=== PATIENT | female | born 1995 | race Caucasian/White ===

== ENCOUNTER 2018-08-09 03:18 | Emergency (ER) | payer OTHER ==
--- NOTE | 2018-08-09 03:23 | ER Report ---
History and Physical Time Seen By MD: 03:22 (KELLY CASTRO DO) HPI/ROS CHIEF COMPLAINT: Nausea, vomiting, diarrhea HISTORY OF PRESENT ILLNESS: Patient is a 23-year-old female here with complaints of nausea, vomiting, diarrhea which reportedly had blood present. Mom reports that they have been doing a road trip visiting family in that she developed symptoms starting last night with nausea, crampy abdominal pain, diarrhea. Pat ient examined as fluid depleted and patient has not been tolerating oral intake. Patient's cousin had similar symptoms and was brought into the emergency department. Patient also complained of right knee pain. Patient has a history of developmental delay but is otherwise healthy at baseline. REVIEW OF SYSTEMS: Constitutional: No fever, no chills. Eyes: No discharge. ENT: No sore throat. Cardiovascular: No chest pain, no palpitations. Respiratory: No cough, no shortness of breath. Gastrointestinal: + diffuse abdominal pain, + nausea and vomiting, + bloody diarrhea Genitourinary: No hematuria. Musculoskeletal: No back pain. Skin: No rashes. Neurological: No headache. (KELLY CASTRO DO) Allergies: Coded Allergies: No Known Drug Allergies (Unverified , 08/09/18) Home Meds Active Scripts Ondansetron 4 Mg Odt (ONDANSETRON 4 MG ODT) 4 Mg Tab.rapdis, 4 MG PO ONCE, #20 TAB Prov:KELLY CASTRO DO 08/09/18 Reported Medications [ control ] No Conflict Check, PO DAILY 08/09/18 Polyethylene Glycol 3350 (MIRALAX) 17 Gm Powd.pack, 17 GM PO DAILY, PKT 08/09/18 Constitutional Vital Sign - Last 24 Hours 08/09/18 08/09/18 08/09/18 08/09/18 03:26 03:30 03:48 04:00 Pulse 117 Resp 20 B/P (MAP) 131/92 (105) 135/95 (108) 131/99 (110) Pulse Ox 96 08/09/18 08/09/18 08/09/18 08/09/18 04:05 04:35 04:43 05:35 Temp 98.2 Pulse 130 121 112 106 Resp 13 10 18 8 B/P (MAP) 131/92 Pulse Ox 92 95 O2 Delivery Room Air 1208/09/18 08/09/18 08/09/18 05:45 06:00 06:20 06:25 Pulse 113 104 Resp 15 22 B/P (MAP) 120/81 (94) 120/71 (87) 08/09/18 08/09/18 06:55 07:25 Pulse 113 96 Resp 14 10 (CAROLIN SOARES MD) Physical Exam General Appearance: The patient is alert, has no immediate need for airway protection and no signs of toxicity. NAD Eyes: Pupils equal and round no pallor or injection. ENT, Mouth: Mucous membranes are dry Respiratory: There are no retractions, lungs are clear to auscultation. Cardiovascular: Regular rate and rhythm. Gastrointestinal: Abdomen is soft and + mildly tender, no masses, bowel sounds normal. Neurological: No focal neuro deficits Skin: Warm and dry, no rashes. Musculoskeletal: Neck is supple non tender. + right knee tenderness, no edema or erythema DIFFERENTIAL DIAGNOSIS: After history and physical exam differential diagnosis was considered for abdominal pain including but not limited to appendicitis, cholecystitis, gastritis and urinary tract infection, viral syndrome (KELLY CASTRO S DO) Medical Decision Making Data Points Result Diagram: 08/09/18 0636 08/09/18 0636 Laboratory Hematology Test 08/09/18 03:35 08/09/18 06:36 Urine Color [place] Urine Clarity Cloudy Urine pH 5.0 pH (4.8-9.5) Urine Specific [place] 1.031 Urine Protein 30 mg/dL (NEGATIVE) Urine Glucose (UA) Negative mg/dL (NEGATIVE) Urine Ketones 20 mg/dL (NEGATIVE) Urine Blood Small (NEGATIVE) Urine Nitrite Negative (NEGATIVE) Urine Bilirubin Negative (NEGATIVE) Urine Urobilinogen Negative mg/dL (0.2-1.9) Urine Leukocyte Esterase Small (NEGATIVE) Urine RBC 1 /HPF (0-2/HPF) Urine WBC 6 /HPF (0-5/HPF) Urine Squamous Epithelial Cells Many /LPF (</=FEW) Urine Transitional Epithelial Cells Moderate /LPF (NONE-FEW) Urine Bacteria Few /HPF (NONE-FEW) Urine Mucus Few /HPF (NONE-FEW) Red Blood Count 5.04 M/uL (4.17-5.56) Mean Corpuscular Volume 85.3 fL (80.0-96.0) Mean Corpuscular Hemoglobin 29.1 pg (26.0-33.0) Mean Corpuscular Hemoglobin Concent 34.1 g/dL (32.0-36.0) Red Cell Distribution Width 12.8 % (11.5-14.5) Mean Platelet Volume 9.2 fL (7.2-11.1) Neutrophils (%) (Auto) 86.9 % (39.4-72.5) Lymphocytes (%) (Auto) 10.2 % (17.6-49.6) Monocytes (%) (Auto) 2.5 % (4.1-12.4) Eosinophils (%) (Auto) 0.1 % (0.4-6.7) Basophils (%) (Auto) 0.3 % (0.3-1.4) Nucleated RBC Relative Count (auto) 0.0 /100WBC Neutrophils # (Auto) 8.4 K/uL (2.0-7.4) Lymphocytes # (Auto) 1.0 K/uL (1.3-3.6) Monocytes # (Auto) 0.2 K/uL (0.3-1.0) Eosinophils # (Auto) 0.0 K/uL (0.0-0.5) Basophils # (Auto) 0.0 K/uL (0.0-0.1) Nucleated RBC Absolute Count (auto) 0.00 K/uL Sodium Level 140 mmol/L (137-145) Potassium Level 4.1 mmol/L (3.5-5.0) Chloride Level 109 mmol/L (98-107) Carbon Dioxide Level 22 mmol/L (22-31) Blood Urea Nitrogen 12 mg/dl (7-18) Creatinine 0.80 mg/dl (0.52-1.04) Glomerular Filtration Rate Calc > 60.0 Random Glucose 96 mg/dl (75-110) Lactate 1.4 mmol/L (0.7-2.1) Calcium Level 8.5 mg/dl (8.4-10.2) Total Bilirubin 0.3 mg/dl (0.2-1.3) Aspartate Amino Transf (AST/SGOT) 21 U/L (0-35) Alanine Aminotransferase (ALT/SGPT) 29 U/L (0-56) Alkaline Phosphatase 53 U/L (0-126) Total Protein 6.6 g/dl (6.3-8.2) Albumin 3.6 g/dl (3.5-5.0) Lipase 83 U/L (23-300) Human Chorionic Gonadotropin, Qual Negative (NEGATIVE) Chemistry Test 08/09/18 03:35 08/09/18 06:36 Urine Color Latha Urine Clarity Cloudy Urine pH 5.0 pH (4.8-9.5) Urine Specific [place] 1.031 Urine Protein 30 mg/dL (NEGATIVE) Urine Glucose (UA) Negative mg/dL (NEGATIVE) Urine Ketones 20 mg/dL (NEGATIVE) Urine Blood Small (NEGATIVE) Urine Nitrite Negative (NEGATIVE) Urine Bilirubin Negative (NEGATIVE) Urine Urobilinogen Negative mg/dL (0.2-1.9) Urine Leukocyte Esterase Small (NEGATIVE) Urine RBC 1 /HPF (0-2/HPF) Urine WBC 6 /HPF (0-5/HPF) Urine Squamous Epithelial Cells Many /LPF (</=FEW) Urine Transitional Epithelial Cells Moderate /LPF (NONE-FEW) Urine Bacteria Few /HPF (NONE-FEW) Urine Mucus Few /HPF (NONE-FEW) White Blood Count 9.7 k/uL (4.5-11.0) Red Blood Count 5.04 M/uL (4.17-5.56) Hemoglobin 14.6 g/dL (12.0-16.0) Hematocrit 43.0 % (34.0-47.0) Mean Corpuscular Volume 85.3 fL (80.0-96.0) Mean Corpuscular Hemoglobin 29.1 pg (26.0-33.0) Mean Corpuscular Hemoglobin Concent 34.1 g/dL (32.0-36.0) Red Cell Distribution Width 12.8 % (11.5-14.5) Platelet Count 149 K/uL (150-450) Mean Platelet Volume 9.2 fL (7.2-11.1) Neutrophils (%) (Auto) 86.9 % (39.4-72.5) Lymphocytes (%) (Auto) 10.2 % (17.6-49.6) Monocytes (%) (Auto) 2.5 % (4.1-12.4) Eosinophils (%) (Auto) 0.1 % (0.4-6.7) Basophils (%) (Auto) 0.3 % (0.3-1.4) Nucleated RBC Relative Count (auto) 0.0 /100WBC Neutrophils # (Auto) 8.4 K/uL (2.0-7.4) Lymphocytes # (Auto) 1.0 K/uL (1.3-3.6) Monocytes # (Auto) 0.2 K/uL (0.3-1.0) Eosinophils # (Auto) 0.0 K/uL (0.0-0.5) Basophils # (Auto) 0.0 K/uL (0.0-0.1) Nucleated RBC Absolute Count (auto) 0.00 K/uL Glomerular Filtration Rate Calc > 60.0 Lactate 1.4 mmol/L (0.7-2.1) Calcium Level 8.5 mg/dl (8.4-10.2) Total Bilirubin 0.3 mg/dl (0.2-1.3) Aspartate Amino Transf (AST/SGOT) 21 U/L (0-35) Alanine Aminotransferase (ALT/SGPT) 29 U/L (0-56) Alkaline Phosphatase 53 U/L (0-126) Total Protein 6.6 g/dl (6.3-8.2) Albumin 3.6 g/dl (3.5-5.0) Lipase 83 U/L (23-300) Human Chorionic Gonadotropin, Qual Negative (NEGATIVE) Urinalysis Test 08/09/18 03:35 Urine Color Latha Urine Clarity Cloudy Urine pH 5.0 pH (4.8-9.5) Urine Specific [place] 1.031 Urine Protein 30 mg/dL (NEGATIVE) Urine Glucose (UA) Negative mg/dL (NEGATIVE) Urine Ketones 20 mg/dL (NEGATIVE) Urine Blood Small (NEGATIVE) Urine Nitrite Negative (NEGATIVE) Urine Bilirubin Negative (NEGATIVE) Urine Urobilinogen Negative mg/dL (0.2-1.9) Urine Leukocyte Esterase Small (NEGATIVE) Urine RBC 1 /HPF (0-2/HPF) Urine WBC 6 /HPF (0-5/HPF) Urine Squamous Epithelial Cells Many /LPF (</=FEW) Urine Transitional Epithelial Cells Moderate /LPF (NONE-FEW) Urine Bacteria Few /HPF (NONE-FEW) Urine Mucus Few /HPF (NONE-FEW) (CAROLIN SOARES MD) EKG/Imaging Imaging X-ray knee pending. (KELLY CASTRO DO) Imaging FACILITY: [facility] PATIENT NAME: King Marshall : 1995 MR: [id number] V: [id number] EXAM DATE: ORDERING PHYSICIAN: KELLY CASTRO TECHNOLOGIST: Location: [facility] Patient: King Marshall : 1995 Visit/Account:[id number] Date of Sevice: 08/09/2018 KNEE 3 VIEW RIGHT HISTORY: knee pain Three-view examination of the right knee. FINDINGS: No acute bony pathology. Joint spaces well-maintained. Soft tissues unremarkable. IMPRESSION: 1. Negative right knee Report Dictated By: Diaz Mojica MD at 08/09/2018 7:56 AM Report E-Signed By: Diaz Mojica MD at 08/09/2018 8:06 AM WSN:[id number] (CAROLIN SOARES MD) ED Course/Re-evaluation ED Course Patient is a 23-year-old female with a history of developmental delay here with complaints of nausea, vomiting, diarrhea starting last evening. Initial difficulties obtaining IV access delayed patient workup and hydration. Patient was infused IV fluids for hydration repletion. X-ray imaging of the knee was obtained due to the patient's complaint of anterior knee pain. Patient signed out to Dr. Soares pending xray and fluid infusion. Decision to Disposition Date: Aug 08, 2018 Decision to Disposition Time: 07:00 (KELLY CASTRO DO) ED Course 08/09/2018 7:42:20 am fluids complete x-ray of the right knee is negative. We'll discharge home Re-evaluation 08/09/2018 8:41:41 am prior to patient's discharge patient had another bloody bowel movement mother brought into the bathroom to take a look at it. We had a discussion with regard to the likely cause of the blood. My feeling is is that because the patient has been having multiple diarrhea stools she has irritated the rectum which is causing some bleeding which hopefully should improve with time. Patient's vital signs stable patient with mild diffuse abdominal tenderness without focality. Because patient is currently staying in [place], I did offer an admission for observation to general surgery service if mother had a concern about being more than 60 minutes from the hospital.. Mother decided that she will take the patient home if symptoms worsen, she will return. Decision to Disposition Date: Aug 09, 2018 Decision to Disposition Time: 07:42 (CAROLIN SOARES MD) Depart Departure Latest Vital Signs Vital Signs Date Time Temp Pulse Resp B/P (MAP) Pulse Ox O2 Delivery O2 Flow Rate FiO2 08/09/18 07:25 96 10 08/09/18 06:00 120/71 (87) 08/09/18 04:43 98.2 95 Room Air (CAROLIN SOARES MD) Impression: Primary Impression: Nausea & vomiting Additional Impressions: Dehydration Diarrhea Condition: Improved Disposition: HOME OR SELF-CARE New Scripts Ondansetron 4 Mg Odt (ONDANSETRON 4 MG ODT) 4 Mg Tab.rapdis 4 MG PO ONCE, #20 TAB Prov: KELLY CASTRO DO 08/09/18 Patient Instructions: Viral Syndrome (ED) Additional Instructions: Please drink plenty of water. You may take Zofran 1 tablet every 4-6 hours the same for nausea and vomiting. Please return immediately if she develop worsening abdominal pain, inability to keep down food or fluids, difficulty breathing. Please follow-up in the next couple days with your family doctor for reevaluation and care. Problem Qualifiers KELLY CASTRO DO Aug 09, 2018 03:23 CAROLIN SOARES MD Aug 09, 2018 07:42
[2018-08-09] MEDS ORDERED: ONDANSETRON 4 MG/2 ML VIAL IVP ONE (03:25)
[2018-08-09] MEDS ORDERED: NS(*) 0.9% 1000 ML BAG 1,000 ML IV ONE (03:25)
[2018-08-09] MEDS ORDERED: fentaNYL CITR 100 MCG/2 ML AMP IVP ONE (03:40)
[2018-08-09] MEDS ORDERED: ONDANSETRON 4 MG ODT TABDP SL ONE (03:45)
[2018-08-09] MEDS ORDERED: birth control PO (04:50)
[2018-08-09] MEDS ORDERED: POLY17PO25 PO (04:50)
[2018-08-09 06:00] VITALS: BP 120/71
[2018-08-09 06:48] LABS: PLATELET COUNT, AUTOMATED 149 K/uL (150-450)
[2018-08-09] MEDS ORDERED: ONDA4TAB9 PO (07:15)
[2018-08-09] MEDS ORDERED: ONDANSETRON 4 MG ODT TH SL ONE ×2 (07:50)
[2018-08-09] MEDS ORDERED: DIPHENOX/ATROPINE 2.5-0.025MG PO ONE (08:05)
--- NOTE | 2018-08-09 08:09 | RADIOLOGY IMAGING REPORT ---
FACILITY: [facility] [place] PATIENT NAME: King Marshall : 1995 MR: [id number] V: [id number] EXAM DATE: ORDERING PHYSICIAN: KELLY CASTRO TECHNOLOGIST: Location: [facility] [place] Patient: King Marshall : 1995 Visit/Account:[id number] Date of Sevice: 08/09/2018 KNEE 3 VIEW RIGHT HISTORY: knee pain Three-view examination of the right knee. FINDINGS: No acute bony pathology. Joint spaces well-maintained. Soft tissues unremarkable. IMPRESSION: 1. Negative right knee Report Dictated By: Diaz Mojica MD at 08/09/2018 7:56 AM Report E-Signed By: Diaz Mojica MD at 08/09/2018 8:06 AM WSN:[id number]
== END 2018-08-09 08:40 | disposition home or self-care (01) ==
LOC: ER 03:36
DX: R11.2 Nausea with vomiting, unspecified (principal); E86.0 Dehydration; R19.7 Diarrhea, unspecified
CPT/HCPCS: 36415; 73562; 81001; 83605; 83690; 84703; 85025; 96360; 96361; 99283; J7030; S0119; 82040; 82247; 82310; 82374; 82435; 82565; 82947; 84075; 84132; 84155; 84295; 84450; 84460; 84520